=== PATIENT | female | born 1940 | race Caucasian/White ===

== ENCOUNTER 2017-09-14 13:22 | Emergency (ER) | payer OTHER ==
[~2017-09-14] VITALS: Ht 167.6 cm; Wt 67.6 kg
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
--- NOTE | 2017-09-14 15:03 | RADIOLOGY REPORT ---
EXAMINATION: SHOULDER 3 VIEWS, RIGHT CLINICAL INFORMATION: Right shoulder pain after fall. COMPARISON: None. TECHNIQUE: AP views of the right shoulder were obtained in internal and external rotation. In addition, a Y view was obtained. FINDINGS: There are no fractures or dislocations. The humeral head is seated within a well-formed glenoid. The AC joint is intact. There are age-appropriate degenerative changes to the right AC joint. IMPRESSION: No evidence for acute injury to the right shoulder.
[2017-09-14 15:04] VITALS: BP 131/62
--- NOTE | 2017-09-14 15:09 | RADIOLOGY REPORT ---
EXAMINATION: XR FEMUR, RIGHT XR HIP, RIGHT CLINICAL INFORMATION: Pain after fall COMPARISON: None TECHNIQUE: AP and lateral views of the right femur. AP and frog-leg lateral views of the right hip FINDINGS: Right hip: The visualized right pelvic bones are intact. The hip arthroplasty components are intact, as well. The femoral head prosthesis is well centered within the acetabular cup and there is no acute periprosthetic fracture. There is linear calcific density along the fascia overlying the greater trochanter. Right femur: Old, healed fracture of the distal femoral metadiaphysis. No acute osseous injury. The knee is suboptimally evaluated on these radiographs focused on the femur. There is tricompartmental osteoarthritis - severe at the medial tibiofemoral compartment. IMPRESSION: 1. Components of the right hip arthroplasty demonstrate satisfactory position and alignment. No acute periprosthetic fracture. 2. Old, healed fracture of the distal right femoral metadiaphysis. 3. Tricompartmental osteoarthritis of the right knee. 4. No acute findings.
[2017-09-14] MEDS ORDERED: CYCLOBENZAPRINE5 M2 PO (16:07)
== END 2017-09-14 16:32 ==
LOC: ERH 13:22
DX: S70.01XA Contusion of right hip, initial encounter (principal); S40.011A Contusion of right shoulder, initial encounter; W00.0XXA Fall on same level due to ice and snow, initial encounter; Y92.9 Unspecified place or not applicable; Y93.9 Activity, unspecified
CPT/HCPCS: 73030-RT; 73502-RT; 73552; 96374; J1885

== ENCOUNTER 2017-10-08 05:48 | Inpatient (IN) | payer OTHER ==
[~2017-10-08] VITALS: Ht 167.6 cm; Wt 69.4 kg
[~2017-10-08 05:48] MED LIST: CYCLOBENZAPRINE5 M2 PO
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
[2017-10-08 06:43] LABS: ABSOLUTE BASOPHIL COUNT 0 /CUMM (0.0-0.2); ABSOLUTE EOSINOPHIL COUNT 0.4 /CUMM (0.0-0.7); ABSOLUTE GRANULOCYTE CT 7.3 /CUMM (1.4-6.5); ABSOLUTE LYMPH COUNT 0.9 /CUMM (1.2-3.4); ABSOLUTE MONOCYTE COUNT 0.8 /CUMM (0.10-0.60); BASOPHIL % 0.2 % (0.0-2.0); EOSINOPHIL % 3.8 % (0-5); HEMATOCRIT 35.8 % (37-47); MEAN CORPUSCULAR HGB 28.3 PG (27.0-31.0); MEAN CORPUSCULAR VOLUME 85.9 FL (81.0-99.0); MEAN PLATELET VOLUME 8.6 FL (7.4-10.4); PLATELET COUNT 310 /CUMM (130-400); RBC DISTRIBUTION WIDTH 13.9 % (11.5-14.5); RED BLOOD CELL CT 4.17 /CUMM (4.20-5.40); WHITE BLOOD CELL COUNT 9.4 /CUMM (4.8-10.8)
--- NOTE | 2017-10-08 09:33 | CT SCAN REPORT ---
EXAMINATION: CT LUMBAR SPINE WITHOUT CONTRAST CLINICAL INFORMATION: Fall with low back pain. COMPARISON: None. TECHNIQUE: Helical non-contrast CT images were obtained through the lumbar spine and 1.25 and 2.5 mm axial reconstructions were reviewed along with sagittal and coronal MPRs. DLP: 651 mGy-cm. FINDINGS: Bone alignment is normal. No vertebral fracture or dislocation is seen. There is a fracture of the left proximal sacrum. This is best appreciated on coronal reconstructed image 46. SPINAL LEVELS: T12-L1: Normal. L1-L2: Normal. L2-L3: There is mild diffuse disc bulge. There is mild secondary spinal stenosis due to disc bulge, short pedicles and facet arthritis. L3-L4: There is broad-based diffuse disc bulge. There is severe spinal stenosis due to disc bulge, short pedicles, facet arthritis and ligamentum flavum thickening. L4-L5: There is broad-based diffuse disc bulge. There is severe secondary spinal stenosis due to disc bulge, short pedicles, facet arthritis and ligamentum flavum thickening. L5-S1: There is broad-based diffuse disc bulge. There is mild secondary spinal stenosis due to disc bulge, short pedicles and facet arthritis. The abdominal aorta is normal in caliber. Visualized paravertebral soft tissues are unremarkable. There may be evidence of diverticulosis. The bladder appears very distended. There are bilateral hip replacements. IMPRESSION: Fracture of the left proximal sacrum. No other fracture is seen. Multilevel broad-based diffuse disc bulge and secondary spinal stenosis due to disc bulge, short pedicles and facet arthritis most significant at L3-L4 and L4-L5.
--- NOTE | 2017-10-08 11:31 | History & Physical ---
Ruma Osorio 10/08/17 1126: General Information and HPI MD Statement: I have seen and personally examined EVELYNE KEANE and documented this H&P. The patient is a 76 year old F who presented with a patient stated chief complaint of [pelvic fracture]. Source of Information: patient Exam Limitations: no limitations History of Present Illness: Patient is 76 year old female with PMH of HTN, diabetes, hyperlipidemia came with chief complain of urinary incontinence and pelvic pain. Patient was here at [place] on 3rd and was sent home on cyclobenzaprine. Her pelvic pain however stayed constant at 10/10, worsened with movement. CT scan was done today which shows pelvic fracture. Patient states that urinary incontinence stated a few days ago. She reports of saddle anesthisia as a funny sensation while whiping herself off because she couldn't feel anything. Patient reports of urinary hesitenacy while lying down but incontinence as she stands up. She denies any blood in urine. Patient states that since the fall, she has obserevd that she feels constipated but also reports that she hasn't eaten much. Patient denies any headache, dizziness, chestpain, burning micturation etc. Allergies/Medications Allergies: Coded Allergies: No Known Allergies (09/14/17) Home Med list Atorvastatin Calcium 20 MG TABLET 1 TAB PO DAILY CHOLESTEROL (Reported) Cholecalciferol (Vitamin D3) (Vitamin D) (Unknown Strength) CAPSULE (Unknown Dose) PO DAILY SUPPLEMENT (Reported) Cyclobenzaprine HCl 5 MG TABLET 1 TAB PO Q8P PRN PAIN Fluticasone Propionate 50 MCG/ACTUATION SPRAY.SUSP 2 SPRAY NASB AD PRN NASAL (Reported) Folic Acid 0.4 MG TABLET 1 TAB PO DAILY SUPPLEMENT (Reported) Glipizide (Glipizide ER) 10 MG TAB.ER.24 2 TAB PO BID DM (Reported) Lorazepam 0.5 MG TABLET 1 TAB PO Q8H PRN ANXIETY (Reported) Losartan/Hydrochlorothiazide (Losartan-Hctz 100-12.5 MG Tab) 100 MG-12.5 MG TABLET 1 TAB PO DAILY BP (Reported) Multiple Vitamin (Multivitamins) 1 EACH TABLET 1 TAB PO DAILY SUPPLEMENT ( Reported) Sitagliptin Phos/Metformin HCl (Janumet 50-500 MG Tablet) 50 MG-500 MG TABLET 1 TAB PO BID DM (Reported) Tramadol HCl/Acetaminophen (Tramadol-Acetaminophn 37.5-325) 37.5 MG-325 MG TABLET 1-2 TAB PO Q8H PRN PAIN (Reported) Vit C/E/Zn/Coppr/Lutein/Zeaxan (Preservision Areds 2 Softgel) 250-200-40 CAPSULE 1 SGL PO BID SUPPLEMENT (Reported) Past History Travel History Traveled to [place] past 21 day No Medical History Neurological: NONE EENT: NONE Cardiovascular: hypertension Respiratory: DVT TO RT LEG Gastrointestinal: NONE Hepatic: NONE Renal: NONE Musculoskeletal: sciatica Psychiatric: NONE Endocrine: diabetes Surgical History Surgical History: B/L HIP REPLACEMENT RT FEMUR FRACTURE WHEN SHE WAS 15 Y/O SKIN GRAFTS TO RLE S/P GANGREEN FROM BODY CAST, two back operations, two herniated disc. been a while Past Family/Social History Psychosocial History Where do you live? Home Who Do You Live With? spouse Services at Home: Home Health Aide, twice a week Smoking Status: Never Smoked ETOH Use: ocassionally Functional Ability ADLs Independent: dressing, eating, toileting, bathing. Ambulation: walker Review of Systems Review of Systems Constitutional: Reports: see HPI. Exam & Diagnostic Data Last 24 Hrs of Vital Signs/I&O Vital Signs Date Time Temp Pulse Resp B/P B/P Pulse O2 O2 Flow FiO2 Mean Ox Delivery Rate 10/08 1041 97.7 88 18 139/64 94 Room Air 10/08 1034 Room Air Room Air 10/08 0909 97.0 80 20 136/72 96 Room Air 10/08 0803 98.0 93 15 136/61 96 Room Air Room Air 10/08 0550 98.2 97 18 133/65 8 Room Air Intake & Output 10/08 1600 10/08 0800 10/08 0000 Intake Total Output Total 150 Balance -150 Output, Urine 150 Patient 69.4 kg Weight Weight Reported by Patient Measurement Method Physical Exam General Appearance Alert, Oriented X3, Cooperative, No Acute Distress Skin No Rashes HEENT Atraumatic, PERRLA Neck Supple, No JVD Lymphatic Axillary nl, Cervical nl Cardiovascular Regular Rate, Normal S1, Normal S2 Lungs Clear to Auscultation, Normal Air Movement Abdomen Soft, No Tenderness, no tenderness in pelvic region , LOSS OF RECTAL TONE Neurological Normal Gait, Normal Speech, Strength at 5/5 X4 Ext, Normal Tone, Sensation Intact, Cranial Nerves 3-12 NL, Reflexes 2+ Extremities right lower extreety is red and swollen Vascular Normal Pulses Last 24 Hrs of Labs/Chung: Laboratory Tests 10/08/17 0630: Anion Gap 16, Estimated GFR > 60, BUN/Creatinine Ratio 21.7, Glucose 152 H, Calcium 9.4, Total Bilirubin 0.5, Direct Bilirubin 0.2, AST 24, ALT 26, Alkaline Phosphatase 112, Troponin I < 0.01, Total Protein 6.7, Albumin 3.9, Amylase 92, Lipase 196, CBC w Diff NO MAN DIFF REQ, RBC 4.17 L, MCV 85.9, MCH 28.3, MCHC 33.0, RDW 13.9, MPV 8.6, Gran % 78.0 H, Lymphocytes % 9.2 L, Monocytes % 8.8, Eosinophils % 3.8, Basophils % 0.2, Absolute Granulocytes 7.3 H, Absolute Lymphocytes 0.9 L, Absolute Monocytes 0.8 H, Absolute Eosinophils 0.4, Absolute Basophils 0 10/08/17 0615: Urinalysis LIGHT H, Urine Color STRAW, Urine Clarity CLEAR, Urine pH 7.0, Ur Specific [place] 1.010, Urine Protein NEG, Urine Ketones NEG, Urine Nitrite POS H, Urine Bilirubin NEG, Urine Urobilinogen 0.2, Ur Leukocyte Esterase NEG, Ur Microscopic SEDIMENT EXAMINED, Urine RBC 1-3, Urine WBC 1-3 H, Ur Epithelial Cells FEW, Urine Bacteria MANY H, Urine Hemoglobin NEG, Urine Glucose NEG Assessment/Plan Assessment: Patient is 76 year old female with PMH of HTN, diabetes, hyperlipidemia came with chief complain of urinary incontinence and pelvic pain. Patient was here at [place] on and was sent home on cyclobenzaprine. Her pelvic pain however stayed constant at 10/10, worsened with movement. CT scan was done today which shows pelvic fracture. Patient states that urinary incontinence stated a few days ago. she has stopped taking her lasix since then. She states that right now, she feels urinary hesitaency but was incontinent earlier today. Denies any blood in urine. CT can 10/08 Fracture of the left proximal sacrum. No other fracture is seen. Multilevel broad-based diffuse disc bulge and secondary spinal stenosis due to disc bulge, short pedicles and facet arthritis most significant at L3-L4 and L4-L5. 1.Pelvic fracture with urinary incontinence and loss of rectal tone 2.Diabetes 3. Hypertension Assessment and Plan There is a possibility of cauda equina syndrome, consult placed with neurosurgery Dr. Anderson. Patient was given one dose of on 10 mg of dexamethasone. Spoke with Erin (surgical PA) regarding her possible cauda equina syndrome (patient reports saddle anesthesia, urinary incontinence and loss of rectal tone on examination). The neurosurgery recommends to hold off on steroids for now as they think that looking at the imagines, pelvic fracture is unlikely. Ortho consult will be placed. Will continue patient on her home medication including HCTZ, losartan, atorvastatin, lasix, Novolog sliding scale for diabetes and finger sticks Pain management with Tylenol and toradol as needed. doppler usg for dvt right lower ext negative for dvt dvt ppx lovenox patient is funn code As Ranked By This Provider Problem List: 1. Sacral fracture, closed Core Measures/Misc (05/29) Acute Coronary Syndrome ACS Diagnosis: No Congestive Heart Failure Congestive Heart Failure Diagnosis No Cerebrovascular Accident CVA/TIA Diagnosis: No VTE (View Protocol) VTE Risk Factors Age>40 No Mechanical VTE Prophylaxis d/t N/A MechProphylax Ordered No VTE Pharm Prophylaxis d/t NA PharmProphylax ordered Sepsis (View protocol) Sepsis Present: No Aidee Nichols MD 10/08/17 1506: Attending MD Review Statement Attending Statement Attending MD Statement: examined this patient, discuss w/resident/PA/REGULATORY ASSOCIATE, agreed w/resident/PA/REGULATORY ASSOCIATE, reviewed EMR data (avail), discussed with nursing, reviewed images, amended to note Attending Assessment/Plan: 76 y/o F with pmh sig for HTN, diabetes, hyperlipidemia, presented to the emergency room with continuous pain in her right lower extremity, and some urinary issues. Patient was initially seen on September 14 after she slipped on the piece of ice because she lost her balance. X-ray of the femur as well as shoulder at that time were negative and patient was sent home. Patient continued to walk but had excruciating pain in her right lower extremity and claims that her right lower extremity was also more swollen. She now also having difficulty with urination. She had urge to go but then they urine would not come out when she was sitting on the commode but as soon as she stood up she had incontinence. She denies any burning or pain. She denies any problem with her bowel movements. In the emergency room CT shows fracture of sacrum. Vital Signs Date Time Temp Pulse Resp B/P B/P Pulse O2 O2 Flow FiO2 Mean Ox Delivery Rate 10/08 1325 98.2 89 20 140/66 97 Room Air 10/08 1209 98.0 80 18 117/76 98 Room Air 10/08 1041 97.7 88 18 139/64 94 Room Air 10/08 1034 Room Air Room Air 10/08 0909 97.0 80 20 136/72 96 Room Air 10/08 0803 98.0 93 15 136/61 96 Room Air Room Air 10/08 0550 98.2 97 18 133/65 8 Room Air on exam; aox3, nad. cv; s1,s2 rrr resp; clear abd; soft, nt, ns+ ext; 1+ edema rle. Neuro: Non focal but pateint has painful ROM rle. Laboratory Tests 10/08 10/08 0630 0615 Chemistry Sodium (137 - 145 mmol/L) 143 Potassium (3.5 - 5.1 mmol/L) 3.6 Chloride (98 - 107 mmol/L) 100 Carbon Dioxide (22 - 30 mmol/L) 27 Anion Gap (5 - 16) 16 BUN (7 - 17 mg/dL) 13 Creatinine (0.5 - 1.0 mg/dL) 0.6 Estimated GFR (>60 ml/min) > 60 BUN/Creatinine Ratio (7 - 25 %) 21.7 Glucose (65 - 99 mg/dL) 152 H Calcium (8.4 - 10.2 mg/dL) 9.4 Total Bilirubin (0.2 - 1.3 mg/dL) 0.5 Direct Bilirubin (< 0.4 mg/dL) 0.2 AST (14 - 36 U/L) 24 ALT (9 - 52 U/L) 26 Alkaline Phosphatase (<127 U/L) 112 Troponin I (< 0.11 ng/ml) < 0.01 Total Protein (6.3 - 8.2 g/dL) 6.7 Albumin (3.5 - 5.0 g/dL) 3.9 Amylase (30 - 110 U/L) 92 Lipase (23 - 300 U/L) 196 Hematology CBC w Diff NO MAN DIFF REQ WBC (4.8 - 10.8 /CUMM) 9.4 RBC (4.20 - 5.40 /CUMM) 4.17 L Hgb (12.0 - 16.0 G/DL) 11.8 L Hct (37 - 47 %) 35.8 L MCV (81.0 - 99.0 FL) 85.9 MCH (27.0 - 31.0 PG) 28.3 MCHC (33.0 - 37.0 G/DL) 33.0 RDW (11.5 - 14.5 %) 13.9 Plt Count (130 - 400 /CUMM) 310 MPV (7.4 - 10.4 FL) 8.6 Gran % (42.2 - 75.2 %) 78.0 H Lymphocytes % (20.5 - 51.1 %) 9.2 L Monocytes % (1.7 - 9.3 %) 8.8 Eosinophils % (0 - 5 %) 3.8 Basophils % (0.0 - 2.0 %) 0.2 Absolute Granulocytes (1.4 - 6.5 /CUMM) 7.3 H Absolute Lymphocytes (1.2 - 3.4 /CUMM) 0.9 L Absolute Monocytes (0.10 - 0.60 /CUMM) 0.8 H Absolute Eosinophils (0.0 - 0.7 /CUMM) 0.4 Absolute Basophils (0.0 - 0.2 /CUMM) 0 Urines Urinalysis LIGHT H Urine Color (YEL,AMB,STR) STRAW Urine Clarity (CLEAR) CLEAR Urine pH (5.0 - 8.0) 7.0 Ur Specific [place] (1.001 - 1.035) 1.010 Urine Protein (NEG,<30 MG/DL) NEG Urine Ketones (NEG) NEG Urine Nitrite (NEG) POS H Urine Bilirubin (NEG) NEG Urine Urobilinogen (0.1 - 1.0 EU/dl) 0.2 Ur Leukocyte Esterase (NEG) NEG Ur Microscopic SEDIMENT EXAMINED Urine RBC (0 - 5 /HPF) 1-3 Urine WBC (0 - 2 /HPF) 1-3 H Ur Epithelial Cells (NONE,FEW) FEW Urine Bacteria (NEG/NONE) MANY H Urine Hemoglobin (NEG) NEG Urine Glucose (N MG/DL) NEG CT lumbar spine: IMPRESSION: Fracture of the left proximal sacrum. No other fracture is seen. Multilevel broad-based diffuse disc bulge and secondary spinal stenosis due to disc bulge, short pedicles and facet arthritis most significant at L3-L4 and L4-L5. EKG shows sinus rhythm. A/P; 76 y/o F with pmh sig for HTN, diabetes, hyperlipidemia, admitted with a fall which happened 3 weeks ago and now with continued pain patient presented to the emergency room. Imaging is consistent with sacral fracture. Patient also has some urinary incontinence. Concern for Cauda Equina. Please check the rectal exam to check the rectal tone. She does have diffuse disc bulge and spinal stenosis on lumbar CT. We should consult neurosurgery as well as orthopedic. Patient also needs LS-spine MRI. Patient's pain will be controlled with the Tylenol and ibuprofen and if needed low-dose narcotics will be used only a when necessary basis. Patient will be seen by physical therapy. Diabetes can be controlled with sliding scale insulin. Her right lower extremity Doppler ultrasound is negative for DVT. Patient be on Lovenox for DVT prophylaxis.
[2017-10-08] MEDS ORDERED: TRAMADOL-ACETA1 EACH PO (12:50)
[2017-10-08] MEDS ORDERED: LOSARTAN-HCTZ1 EACH PO (12:53)
[2017-10-08] MEDS ORDERED: FLUTICASONE PRO16 GM NASB (12:53)
[2017-10-08] MEDS ORDERED: JANUMET 50-5001 EACH PO (12:53)
[2017-10-08] MEDS ORDERED: GLIPIZIDE ER10 M1 PO (12:53)
[2017-10-08] MEDS ORDERED: LORAZEPAM0.5 M1 PO (12:54)
[2017-10-08] MEDS ORDERED: ATORVASTATIN CA20 M1 PO (12:54)
[2017-10-08] MEDS ORDERED: MULTIVITAMINS1 EAC9 PO (12:56)
[2017-10-08] MEDS ORDERED: FOLIC ACID0.4 M1 PO (12:57)
[2017-10-08] MEDS ORDERED: PRESERVISION A1 EAC1 PO (12:57)
[2017-10-08] MEDS ORDERED: VITAMIN D2000 UNIT PO (13:00)
--- NOTE | 2017-10-08 13:09 | ULTRASOUND REPORT ---
EXAMINATION: US TRIPLEX LOWER EXTREMITY, RIGHT CLINICAL INFORMATION: Right leg tenderness COMPARISON: None TECHNIQUE: Color-flow triplex imaging with spectral analysis and compression Doppler were performed on the lower extremity. FINDINGS: Respiratory variation, normal compression and augmented flow are noted throughout the lower extremity. The visualized common femoral vein, superficial femoral vein, profunda femoral vein, popliteal vein and midcalf peroneal and posterior tibial venous segments show no evidence of deep venous thrombosis. There is no Spaulding's cyst. IMPRESSION: Normal triplex scan without evidence of deep venous thrombosis involving the lower extremity.
[2017-10-08 13:25] VITALS: BP 140/66
--- NOTE | 2017-10-08 16:48 | Cons- Neurosurgical ---
General Information and HPI Consulting Request Requested By: Aidee Nichols MD Reason for Consult: concern for cauda equina syndrome Source of Information: patient, old records History of Present Illness: Pt is a 76 yo F with a hx of HTN, diabetes, hyperlipidemia, and back surgery x 2 who slipped and fell on ice on 09/14/17, was seen in the ED at that time and determined to have no fractures, so she was sent home. She continued to c/o pain at home and now reports urinary incontinence x 3 days, prompting presentation to the ED today. Allergies/Medications Allergies: Coded Allergies: No Known Allergies (09/14/17) Home Med List: Atorvastatin Calcium 20 MG TABLET 1 TAB PO DAILY CHOLESTEROL (Reported) Cholecalciferol (Vitamin D3) (Vitamin D) (Unknown Strength) CAPSULE (Unknown Dose) PO DAILY SUPPLEMENT (Reported) Cyclobenzaprine HCl 5 MG TABLET 1 TAB PO Q8P PRN PAIN Fluticasone Propionate 50 MCG/ACTUATION SPRAY.SUSP 2 SPRAY NASB AD PRN NASAL (Reported) Folic Acid 0.4 MG TABLET 1 TAB PO DAILY SUPPLEMENT (Reported) Glipizide (Glipizide ER) 10 MG TAB.ER.24 2 TAB PO BID DM (Reported) Lorazepam 0.5 MG TABLET 1 TAB PO Q8H PRN ANXIETY (Reported) Losartan/Hydrochlorothiazide (Losartan-Hctz 100-12.5 MG Tab) 100 MG-12.5 MG TABLET 1 TAB PO DAILY BP (Reported) Multiple Vitamin (Multivitamins) 1 EACH TABLET 1 TAB PO DAILY SUPPLEMENT ( Reported) Sitagliptin Phos/Metformin HCl (Janumet 50-500 MG Tablet) 50 MG-500 MG TABLET 1 TAB PO BID DM (Reported) Tramadol HCl/Acetaminophen (Tramadol-Acetaminophn 37.5-325) 37.5 MG-325 MG TABLET 1-2 TAB PO Q8H PRN PAIN (Reported) Vit C/E/Zn/Coppr/Lutein/Zeaxan (Preservision Areds 2 Softgel) 250-200-40 CAPSULE 1 SGL PO BID SUPPLEMENT (Reported) Past History Medical History Neurological: NONE EENT: NONE Cardiovascular: hypertension Respiratory: DVT TO RT LEG Gastrointestinal: NONE Hepatic: NONE Renal: NONE Musculoskeletal: sciatica Psychiatric: NONE Endocrine: diabetes Surgical History Pertinent Surgical History: B/L HIP REPLACEMENT RT FEMUR FRACTURE WHEN SHE WAS 15 Y/O SKIN GRAFTS TO RLE S/P GANGREEN FROM BODY CAST two back operations, two herniated disc. been a while, back surgery x 2 Psychosocial History Where Do You Live? Home Who Do You Live With? spouse Services at Home: Home Health Aide, twice a week Smoking Status: Never Smoked ETOH Use: ocassionally Functional Ability ADLs Independent: dressing, eating, toileting, bathing. Ambulation: walker Exam & Diagnostic Data Vital Signs and I&O Vital Signs Date Time Temp Pulse Resp B/P B/P Pulse O2 O2 Flow FiO2 Mean Ox Delivery Rate 10/08 1325 98.2 89 20 140/66 97 Room Air 10/08 1209 98.0 80 18 117/76 98 Room Air 10/08 1041 97.7 88 18 139/64 94 Room Air 10/08 1034 Room Air Room Air 10/08 0909 97.0 80 20 136/72 96 Room Air 10/08 0803 98.0 93 15 136/61 96 Room Air Room Air 10/08 0550 98.2 97 18 133/65 8 Room Air Intake & Output 10/08 1600 10/08 0800 10/08 0000 10/07 1600 10/07 0800 10/07 0000 Intake Total Output Total 150 Balance -150 Output, Urine 150 Patient 153 lb Weight Weight Reported by Patient Measurement Method Last 24 Hours of Labs: Laboratory Tests 10/08 10/08 0630 0615 Chemistry Sodium (137 - 145 mmol/L) 143 Potassium (3.5 - 5.1 mmol/L) 3.6 Chloride (98 - 107 mmol/L) 100 Carbon Dioxide (22 - 30 mmol/L) 27 Anion Gap (5 - 16) 16 BUN (7 - 17 mg/dL) 13 Creatinine (0.5 - 1.0 mg/dL) 0.6 Estimated GFR (>60 ml/min) > 60 BUN/Creatinine Ratio (7 - 25 %) 21.7 Glucose (65 - 99 mg/dL) 152 H Calcium (8.4 - 10.2 mg/dL) 9.4 Total Bilirubin (0.2 - 1.3 mg/dL) 0.5 Direct Bilirubin (< 0.4 mg/dL) 0.2 AST (14 - 36 U/L) 24 ALT (9 - 52 U/L) 26 Alkaline Phosphatase (<127 U/L) 112 Troponin I (< 0.11 ng/ml) < 0.01 Total Protein (6.3 - 8.2 g/dL) 6.7 Albumin (3.5 - 5.0 g/dL) 3.9 Amylase (30 - 110 U/L) 92 Lipase (23 - 300 U/L) 196 Hematology CBC w Diff NO MAN DIFF REQ WBC (4.8 - 10.8 /CUMM) 9.4 RBC (4.20 - 5.40 /CUMM) 4.17 L Hgb (12.0 - 16.0 G/DL) 11.8 L Hct (37 - 47 %) 35.8 L MCV (81.0 - 99.0 FL) 85.9 MCH (27.0 - 31.0 PG) 28.3 MCHC (33.0 - 37.0 G/DL) 33.0 RDW (11.5 - 14.5 %) 13.9 Plt Count (130 - 400 /CUMM) 310 MPV (7.4 - 10.4 FL) 8.6 Gran % (42.2 - 75.2 %) 78.0 H Lymphocytes % (20.5 - 51.1 %) 9.2 L Monocytes % (1.7 - 9.3 %) 8.8 Eosinophils % (0 - 5 %) 3.8 Basophils % (0.0 - 2.0 %) 0.2 Absolute Granulocytes (1.4 - 6.5 /CUMM) 7.3 H Absolute Lymphocytes (1.2 - 3.4 /CUMM) 0.9 L Absolute Monocytes (0.10 - 0.60 /CUMM) 0.8 H Absolute Eosinophils (0.0 - 0.7 /CUMM) 0.4 Absolute Basophils (0.0 - 0.2 /CUMM) 0 Urines Urinalysis LIGHT H Urine Color (YEL,AMB,STR) STRAW Urine Clarity (CLEAR) CLEAR Urine pH (5.0 - 8.0) 7.0 Ur Specific [place] (1.001 - 1.035) 1.010 Urine Protein (NEG,<30 MG/DL) NEG Urine Ketones (NEG) NEG Urine Nitrite (NEG) POS H Urine Bilirubin (NEG) NEG Urine Urobilinogen (0.1 - 1.0 EU/dl) 0.2 Ur Leukocyte Esterase (NEG) NEG Ur Microscopic SEDIMENT EXAMINED Urine RBC (0 - 5 /HPF) 1-3 Urine WBC (0 - 2 /HPF) 1-3 H Ur Epithelial Cells (NONE,FEW) FEW Urine Bacteria (NEG/NONE) MANY H Urine Hemoglobin (NEG) NEG Urine Glucose (N MG/DL) NEG Imaging Results: CT lumbar spine revealed: Fracture of the left proximal sacrum. No other fracture is seen. Multilevel broad-based diffuse disc bulge and secondary spinal stenosis due to disc bulge, short pedicles and facet arthritis most significant at L3-L4 and L4-L5. Assessment/Plan Assessment/Plan Pt is a 76 yo F with a hx of HTN, diabetes, hyperlipidemia, and back surgery x 2 with radiologic findings of sacral fracture with associated spinal stenosis and symptoms of urinary incontinence and concern for cauda equina syndrome. -Agree with findings consistent with cauda equina syndrome (buttock and groin pain with radicular symptoms, saddle anesthesia, loss of rectal sphincter tone, and urinary incontinence). I spoke with the neurosurgeon, Dr. Anderson, and he does not appreciate the sacral fracture finding on CT. There is extensive arthritis and the clinical picture supports this as a possible diagnosis, however, further imaging with MRI is needed to better define the source of pt's symptoms. Dr. Anderson understands MRI is not available until Tuesday, so the test can be done then. There is no acute indication for emergent surgical intervention at this time. -Bedrest. -Pain control as needed. -One dose of decadron has been given so far, but steroids should be held as long as pt remains comfortable while in bed. The risk of steroids to potentiate hyperglycemia in the setting of possible surgery outweighs the benefit of giving them. -Neuro checks Consult Acknowledgment - Thank you for your consult request.
[2017-10-08 21:27] VITALS: BP 124/66
[2017-10-09 06:12] VITALS: BP 124/62
--- NOTE | 2017-10-09 07:26 | PN- Housestaff ---
AbdulkadirStanford 10/09/17 0719: Subjective Follow-up For: Cauda equina syndrome. Non displaced left sacral fracture Subjective: No overnight events. Patient remained afebrile overnight. Seen and examined this morning. Patient reported having pain 45/10. She denied any chest pain, short of breath, nausea, vomiting, chills, fever, abdominal pain dysuria. Patient also reported having numbness intracranial area but it's getting better according to the patient. Patient is on bedrest. Review of Systems Constitutional: Reports: no symptoms. EENTM: Reports: no symptoms. Cardiovascular: Reports: no symptoms. Respiratory: Reports: no symptoms. Gastrointestinal: Reports: no symptoms. Genitourinary: Reports: no symptoms. Musculoskeletal: Reports: see HPI. Neurological/Psychological: Reports: numbness. Objective Last 24 Hrs of Vital Signs/I&O Vital Signs Date Time Temp Pulse Resp B/P B/P Pulse O2 O2 Flow FiO2 Mean Ox Delivery Rate 10/09 0612 97.4 84 20 124/62 95 10/08 2127 98.6 94 18 124/66 94 Room Air 10/08 1712 95 108/60 10/08 1325 98.2 89 20 140/66 97 Room Air 10/08 1209 98.0 80 18 117/76 98 Room Air 10/08 1041 97.7 88 18 139/64 94 Room Air 10/08 1034 Room Air Room Air 10/08 0909 97.0 80 20 136/72 96 Room Air Intake & Output 10/09 1600 10/09 0800 10/09 0000 Intake Total 350 650 Output Total 1000 1000 Balance -650 -350 Intake, Oral 350 650 Output, Urine 1000 1000 Physical Exam General Appearance: Alert, Oriented X3, Cooperative, No Acute Distress Skin Temp/Moisture Exam: Warm/Dry Sepsis Skin Exam (color): Normal for Ethnicity HEENT: Atraumatic, PERRLA, EOMI Neck: Supple Cardiovascular: Normal S1, Normal S2 Lungs: Clear to Auscultation Abdomen: Soft, No Tenderness Neurological: Normal Speech, Strength at 5/5 X4 Ext, Normal Tone Extremities: Right leg is swollen compare to left. Assessment/Plan Assessment: 76 yo F with PMH of HTN, diabetes, hyperlipidemia, and back surgery x 2 who slipped and fell on ice on 09/14/17, was seen in the ED at that time and determined to have no fractures, so she was sent home. She continued to c/o pain at home and now reports urinary incontinence x 3 days, prompting presentation to the ED today. We will admit the patient on general medicine floor for pain management and cauda equina syndrome management. Cauda equina syndrome: -Findings consistent with cauda equina syndrome (buttock and groin pain with radicular symptoms, saddle anesthesia, loss of rectal sphincter tone, and urinary incontinence). -Pain management -Bedrest -Neuro checks every 4 hourly. -MRI for further evaluation -Orthopedic recommended conservative management for now. -Neurosurgery recommendations History of hypertension and hyperlipidemia: -We will continue her antihypertensive and antihyperlipidemic medication. History of diabetes: -Accu-Cheks -Insulin NovoLog according to sliding scale. DVT prophylaxis: Mechanical and Lovenox CODE STATUS: Full code Problem List: 1. Sacral fracture, closed 2. Weakness 3. Back pain Pain Ratin Pain Location: Left buttock Pain Goal: Pain 4 or less Pain Plan: tylenol for mild pain Tomorrow's Labs & Rationales: cbc/bep Carla Nichols MDesha 10/09/17 1308: Attending MD Review Statement Attending Statement Attending MD Statement: examined this patient, discuss w/resident/PA/SPONGE DIVER, agreed w/resident/PA/SPONGE DIVER, reviewed EMR data (avail), discussed with nursing, discussed with case mgmt, reviewed images, amended to note Attending Assessment/Plan: Patient seen and examined, feels ok. Pain well controlled. Seen by neurosurg for concern for cauda equina, orthopedic. Vital Signs Date Time Temp Pulse Resp B/P B/P Pulse O2 O2 Flow FiO2 Mean Ox Delivery Rate 10/09 1035 72 120/60 10/09 0612 97.4 84 20 124/62 95 10/08 2127 98.6 94 18 124/66 94 Room Air 10/08 1712 95 108/60 10/08 1325 98.2 89 20 140/66 97 Room Air on exam; aox3, nad. cv; s1,s2, rrr resp; clear abd; soft, nt, bs+ ext; no edema. neuro: non focal. Laboratory Tests 10/09 0705 Chemistry Sodium (137 - 145 mmol/L) 143 Potassium (3.5 - 5.1 mmol/L) 4.3 Chloride (98 - 107 mmol/L) 101 Carbon Dioxide (22 - 30 mmol/L) 27 Anion Gap (5 - 16) 15 BUN (7 - 17 mg/dL) 16 Creatinine (0.5 - 1.0 mg/dL) 0.6 Estimated GFR (>60 ml/min) > 60 BUN/Creatinine Ratio (7 - 25 %) 26.7 H Hematology CBC w Diff NO MAN DIFF REQ WBC (4.8 - 10.8 /CUMM) 9.6 RBC (4.20 - 5.40 /CUMM) 4.24 Hgb (12.0 - 16.0 G/DL) 12.1 Hct (37 - 47 %) 36.5 L MCV (81.0 - 99.0 FL) 86.3 MCH (27.0 - 31.0 PG) 28.6 MCHC (33.0 - 37.0 G/DL) 33.2 RDW (11.5 - 14.5 %) 13.9 Plt Count (130 - 400 /CUMM) 356 MPV (7.4 - 10.4 FL) 9.2 Gran % (42.2 - 75.2 %) 89.7 H Lymphocytes % (20.5 - 51.1 %) 6.4 L Monocytes % (1.7 - 9.3 %) 3.8 Eosinophils % (0 - 5 %) 0 Basophils % (0.0 - 2.0 %) 0.1 Absolute Granulocytes (1.4 - 6.5 /CUMM) 8.6 H Absolute Lymphocytes (1.2 - 3.4 /CUMM) 0.6 L Absolute Monocytes (0.10 - 0.60 /CUMM) 0.4 Absolute Eosinophils (0.0 - 0.7 /CUMM) 0 Absolute Basophils (0.0 - 0.2 /CUMM) 0 A/P; 76 y/o F with pmh sig for HTN, diabetes, hyperlipidemia, admitted with a fall which happened 3 weeks ago and now with continued pain patient presented to the emergency room. Imaging is consistent with sacral fracture. Patient also has some urinary incontinence. Concern for Cauda Equina. Seen orthopedic, neurosurg. Conservative mx recommended. MRI LS spine recommended which unfortunatley not availabel today. Neurosurg aware. Pt received one dose of decadron yesterday, Neurosurg recommended not to give any further. Continue current pain mx. Continue all current meds. DVt px; Lovenox. PT eval. Addendum: Neurosurg follow-up later in the afternoon recommended transfer to [facility] for an urgent MRI. Patient will be admitted to Dr. Anderson's c. Arrngements will be made.
[2017-10-09 08:33] LABS: ABSOLUTE BASOPHIL COUNT 0 /CUMM (0.0-0.2); ABSOLUTE EOSINOPHIL COUNT 0 /CUMM (0.0-0.7); ABSOLUTE GRANULOCYTE CT 8.6 /CUMM (1.4-6.5); ABSOLUTE LYMPH COUNT 0.6 /CUMM (1.2-3.4); ABSOLUTE MONOCYTE COUNT 0.4 /CUMM (0.10-0.60); BASOPHIL % 0.1 % (0.0-2.0); EOSINOPHIL % 0 % (0-5); HEMATOCRIT 36.5 % (37-47); MEAN CORPUSCULAR HGB 28.6 PG (27.0-31.0); MEAN CORPUSCULAR HGB CONC 33.2 G/DL (33.0-37.0); MEAN CORPUSCULAR VOLUME 86.3 FL (81.0-99.0); MEAN PLATELET VOLUME 9.2 FL (7.4-10.4); PLATELET COUNT 356 /CUMM (130-400); RBC DISTRIBUTION WIDTH 13.9 % (11.5-14.5); RED BLOOD CELL CT 4.24 /CUMM (4.20-5.40); WHITE BLOOD CELL COUNT 9.6 /CUMM (4.8-10.8)
--- NOTE | 2017-10-09 08:36 | Cons- Orthopedic ---
General Information and HPI Consulting Request Date of Consult: 10/09/17 Requested By: Aidee Nichols MD Reason for Consult: pain left sacrum and lower lumbar spine Source of Information: patient History of Present Illness: patient has had many orthopedic procedures in the past including bilateral hip replacements , lumbar discectomies x2. she had a mechanical fall which resulted in a left sided sacral fracture and exacerbation of her spinal stenosis at L4-5 and L 5 S1.was admitted with pain and difficulty walking.neurosurgery has seen the patient and appropriately has ordered lumbar MRI. Allergies/Medications Allergies: Coded Allergies: No Known Allergies (09/14/17) Home Med List: Atorvastatin Calcium 20 MG TABLET 1 TAB PO DAILY CHOLESTEROL (Reported) Cholecalciferol (Vitamin D3) (Vitamin D) (Unknown Strength) CAPSULE (Unknown Dose) PO DAILY SUPPLEMENT (Reported) Cyclobenzaprine HCl 5 MG TABLET 1 TAB PO Q8P PRN PAIN Fluticasone Propionate 50 MCG/ACTUATION SPRAY.SUSP 2 SPRAY NASB AD PRN NASAL (Reported) Folic Acid 0.4 MG TABLET 1 TAB PO DAILY SUPPLEMENT (Reported) Glipizide (Glipizide ER) 10 MG TAB.ER.24 2 TAB PO BID DM (Reported) Lorazepam 0.5 MG TABLET 1 TAB PO Q8H PRN ANXIETY (Reported) Losartan/Hydrochlorothiazide (Losartan-Hctz 100-12.5 MG Tab) 100 MG-12.5 MG TABLET 1 TAB PO DAILY BP (Reported) Multiple Vitamin (Multivitamins) 1 EACH TABLET 1 TAB PO DAILY SUPPLEMENT ( Reported) Sitagliptin Phos/Metformin HCl (Janumet 50-500 MG Tablet) 50 MG-500 MG TABLET 1 TAB PO BID DM (Reported) Tramadol HCl/Acetaminophen (Tramadol-Acetaminophn 37.5-325) 37.5 MG-325 MG TABLET 1-2 TAB PO Q8H PRN PAIN (Reported) Vit C/E/Zn/Coppr/Lutein/Zeaxan (Preservision Areds 2 Softgel) 250-200-40 CAPSULE 1 SGL PO BID SUPPLEMENT (Reported) Past History Medical History Neurological: NONE EENT: NONE Cardiovascular: hypertension Respiratory: DVT TO RT LEG Gastrointestinal: NONE Hepatic: NONE Renal: NONE Musculoskeletal: sciatica Psychiatric: NONE Endocrine: diabetes Surgical History Pertinent Surgical History: B/L HIP REPLACEMENT RT FEMUR FRACTURE WHEN SHE WAS 15 Y/O SKIN GRAFTS TO RLE S/P GANGREEN FROM BODY CAST two back operations, two herniated disc. been a while back surgery x 2 Psychosocial History Where Do You Live? Home Who Do You Live With? spouse Services at Home: Home Health Aide, twice a week Smoking Status: Never Smoked ETOH Use: ocassionally Functional Ability ADLs Independent: dressing, eating, toileting, bathing. Ambulation: walker Exam & Diagnostic Data Vital Signs and I&O Vital Signs Date Time Temp Pulse Resp B/P B/P Pulse O2 O2 Flow FiO2 Mean Ox Delivery Rate 10/09 0612 97.4 84 20 124/62 95 10/08 2127 98.6 94 18 124/66 94 Room Air 10/08 1712 95 108/60 10/08 1325 98.2 89 20 140/66 97 Room Air 10/08 1209 98.0 80 18 117/76 98 Room Air 10/08 1041 97.7 88 18 139/64 94 Room Air 10/08 1034 Room Air Room Air 10/08 0909 97.0 80 20 136/72 96 Room Air Intake & Output 10/09 1600 10/09 0800 10/09 0000 10/08 1600 10/08 0800 10/08 0000 Intake Total 350 650 250 Output Total 1000 1000 200 150 Balance -650 -350 50 -150 Intake, Oral 350 650 250 Number 0 Bowel Movements Output, Urine 1000 1000 200 150 Patient 153 lb 153 lb Weight Weight Reported by Patient Reported by Patient Measurement Method Physical Exam: she is an alert female complains of some sacral and lumbar pain. she has no change in bowel or bladder habits.she has pain to palpation over sacrum and lumbar spine. neuro grossly intact. ct scan left sided fracture sacrum no displacement. Assessment/Plan Assessment/Plan patient is a 76 y/o with significant lumbar spinal stenosis and new nondisplaced left sacral fracture.the plan is MRI for neurosurgery to review. she can be OOB 50% wb left side full on right. no orthopedic intervention needed. Consult Acknowledgment - Thank you for your consult request.
[2017-10-09 09:24] LABS: GRANULOCYTE % 89.7 % (42.2-75.2)
--- NOTE | 2017-10-09 14:18 | PN- Neurosurgical ---
Subjective Subjective: Patient continues to complain of low back pain with radiation to the right lower extremity. She also still has subtle paresthesias but states it is slightly better today. She has been incontinent of urine. She complains of hypersensitivity in the lower leg especially around the ankle. Review of Systems: See above Objective Vital Signs and I&Os Vital Signs Date Time Temp Pulse Resp B/P B/P Pulse O2 O2 Flow FiO2 Mean Ox Delivery Rate 10/09 1035 72 120/60 10/09 0612 97.4 84 20 124/62 95 10/08 2127 98.6 94 18 124/66 94 Room Air 10/08 1712 95 108/60 Intake & Output 10/09 1600 10/09 0800 10/09 0000 10/08 1600 10/08 0800 10/08 0000 Intake Total 350 650 250 Output Total 1000 1000 200 150 Balance -650 -350 50 -150 Intake, Oral 350 650 250 Number 0 Bowel Movements Output, Urine 1000 1000 200 150 Patient 153 lb 153 lb Weight Weight Reported by Patient Reported by Patient Measurement Method Physical Exam: A&O 3, NAD She has good strength in her lower extremities but limited secondary to discomfort in the right lower leg and from the knee down He has some hypersensitivity of the skin around the ankle. She has good proximal strength Straight leg raise is negative to 60 bilaterally. Assessment/Plan Assessment/Plan Probable cauda equina syndrome Since MRI is not available at this facility today, we recommended patient be transferred to [facility] to undergo a stat MRI with and without contrast of lumbar spine Patient will be admitted to Dr. Anderson's service. Plans are being made for this transfer. Condition is in full agreement Problem List: 1. Weakness 2. Back pain Attending MD Review Statement Attending Statement Attending MD Statement: discuss w/resident/PA/PERFUME AND TOILET WATER MAKER, agreed w/resident/PA/PERFUME AND TOILET WATER MAKER
--- NOTE | 2017-10-09 14:23 | Patient Discharge Instructions ---
Discharge Instructions General Discharge Information You were seen/treated for: CAUDA EQUINA SYNDROME Special Instructions: YOU WILL BE SEEN BY DR. HEREDIA NEUROSURGEON, MRI WILL BE DONE FOR EVALUATION CAUDA EQUINA SYNDROME. Diet Continue normal diet: Yes Recommended Diet: Diabetic Activity Full Activity/No Limits: Yes ( TOLERATED) Acute Coronary Syndrome Inclusion Criteria At DC or during hospital stay patient has or had the following: ACS DIAGNOSIS No Discharge Core Measures Meds if any: Prescribed or Continued at Discharge Meds if any: NOT Prescribed or Continued at Discharge Congestive Heart Failure Inclusion Criteria At DC or during hospital stay patient has or had the following: CHF DIAGNOSIS No Discharge Core Measures Meds if any: Prescribed or Continued at Discharge Meds if any: NOT Prescribed or Continued at Discharge Cerebrovascular accident Inclusion Criteria At DC or during hospital stay patient has or had the following: CVA/TIA Diagnosis No Discharge Core Measures Meds if any: Prescribed or Continued at Discharge Meds if any: NOT Prescribed or Continued at Discharge Venous thromboembolism Inclusion Criteria VTE Diagnosis No VTE Type NONE VTE Confirmed by (Test) NONE Discharge Core Measures - Per Current guidelines, there needs to be overlap - treatment for the first 5 days of Warfarin therapy. - If discharged on Warfarin prior to 5 days of - overlap therapy, the patient will need to be - assessed for post discharge needs including - *Post discharge parental anticoagulation - *Warfarin and/or parental anticoagulation education - *Follow up date to check INR post discharge At least 5 days overlap therapy as Inpatient No Meds if any: Prescribed or Continued at Discharge Note: Overlap Therapy is Warfarin and Anticoagulant Meds if any: NOT Prescribed or Continued at Discharge
[2017-10-09 14:39] VITALS: BP 114/50
--- NOTE | 2017-10-09 14:41 | Discharge Summary ---
Visit Information Visit Dates Admission Date: 10/08/17 Discharge Date: 10/09/2017 Hospital Course Course Attending Physician: Simone APPLE,Aidee Primary Care Physician: Patient Has No Primary Care Dr Hospital Course: Patient is 76 year old female with PMH of HTN, diabetes, hyperlipidemia came with chief complaint of urinary incontinence and pelvic pain. Patient was initially seen on September 14 after she slipped on the piece of ice because she lost her balance. X-ray of the femur as well as shoulder at that time were negative and patient was sent home. Patient continued to walk but had excruciating pain in her right lower extremity and claims that her right lower extremity was also more swollen. She now also having difficulty with urination. She had urge to go but then they urine would not come out when she was sitting on the commode but as soon as she stood up she had incontinence. She denies any burning or pain. She denies any problem with her bowel movements. In the emergency room CT shows fracture of sacrum. --------- Vitals at the time of admission afebrile, heart rate 97, respiratory rate 18, blood pressure 133/65, saturating at 95 on room air labs CBC and BP normal CT scan 10/08 Fracture of the left proximal sacrum. No other fracture is seen. Multilevel broad-based diffuse disc bulge and secondary spinal stenosis due to disc bulge, short pedicles and facet arthritis most significant at L3-L4 and L4-L5. 1.Pelvic fracture with urinary incontinence and loss of rectal tone 2.Diabetes 3. Hypertension A/P; 76 y/o F with pmh sig for HTN, diabetes, hyperlipidemia, admitted with a fall which happened 3 weeks ago and now with continued pain patient presented to the emergency room. Imaging is consistent with sacral fracture. Patient also has some urinary incontinence. Concern for Cauda Equina. Neurosurgery, orthopedic was consulted. There is concern for cauda equina syndrome given saddle anesthesia, urinary incontinence, loss of rectal tone on rectal exam. Patient was given 1 dose of 10 mg dexamethasone. Patient needs further imaging with MRI to confirm cauda equina syndrome. As MRI is not available until Tuesday patient will be transferred to [facility] for emergent MRI and urgent surgical intervention as per Dr. Anderson neurosurgeon. Will be admitted under Dr. Anderson's service. Patient was provided adequate pain management with Tylenol, ibuprofen, low-dose narcotics. Left sacral fracture patient has had many orthopedic procedures in the past including bilateral hip replacements , lumbar discectomies x2. she had a mechanical fall which resulted in a left sided sacral fracture and exacerbation of her spinal stenosis at L4-5 and L 5 S1. she was admitted with pain and difficulty walking. She was seen by Dr. Lopez orthopedician, no acute recommendations were provided. Right lower extremity swelling Her right lower extremity Doppler ultrasound is negative for DVT. Hypertension continued hydrochlorothiazide, losartan, Lasix Hyperlipidemia continued statin Diabetes continue insulin sliding scale Patient be on Lovenox for DVT prophylaxis. Full code Allergies: Coded Allergies: No Known Allergies (09/14/17) Significant Procedures: EXAM TYPE: CAT - CT LUMB SPINE WO IV CONTRAST EXAMINATION: CT LUMBAR SPINE WITHOUT CONTRAST CLINICAL INFORMATION: Fall with low back pain. COMPARISON: None. TECHNIQUE: Helical non-contrast CT images were obtained through the lumbar spine and 1.25 and 2.5 mm axial reconstructions were reviewed along with sagittal and coronal MPRs. DLP: 651 mGy-cm. FINDINGS: Bone alignment is normal. No vertebral fracture or dislocation is seen. There is a fracture of the left proximal sacrum. This is best appreciated on coronal reconstructed image 46. SPINAL LEVELS: T12-L1: Normal. L1-L2: Normal. L2-L3: There is mild diffuse disc bulge. There is mild secondary spinal stenosis due to disc bulge, short pedicles and facet arthritis. L3-L4: There is broad-based diffuse disc bulge. There is severe spinal stenosis due to disc bulge, short pedicles, facet arthritis and ligamentum flavum thickening. L4-L5: There is broad-based diffuse disc bulge. There is severe secondary spinal stenosis due to disc bulge, short pedicles, facet arthritis and ligamentum flavum thickening. L5-S1: There is broad-based diffuse disc bulge. There is mild secondary spinal stenosis due to disc bulge, short pedicles and facet arthritis. The abdominal aorta is normal in caliber. Visualized paravertebral soft tissues are unremarkable. There may be evidence of diverticulosis. The bladder appears very distended. There are bilateral hip replacements. IMPRESSION: Fracture of the left proximal sacrum. No other fracture is seen. Multilevel broad-based diffuse disc bulge and secondary spinal stenosis due to disc bulge, short pedicles and facet arthritis most significant at L3-L4 and L4-L5. TECHNIQUE: Color-flow triplex imaging with spectral analysis and compression Doppler were performed on the lower extremity. FINDINGS: Respiratory variation, normal compression and augmented flow are noted throughout the lower extremity. The visualized common femoral vein, superficial femoral vein, profunda femoral vein, popliteal vein and midcalf peroneal and posterior tibial venous segments show no evidence of deep venous thrombosis. There is no Spaulding's cyst. IMPRESSION: Normal triplex scan without evidence of deep venous thrombosis involving the lower extremity. ------- Disposition Summary Disposition Principal Diagnosis: Left sacral fracture Highly suspicious for cauda equina syndrome Additional Diagnosis: Hypertension Hyperlipidemia Diabetes mellitus Discharge Disposition: other general hospital Discharge Instructions General Discharge Information Code Status: Full Code Patient's Diet: As tolerated Patient's Activity: she can be OOB 50% wb left side full on right Follow-Up Instructions/Appts: Follow-up with PCP in one week after discharge Follow-up with orthopedics in one week after discharge follow-up with the neurosurgeon in 1 week after discharge Medications at Discharge Discharge Medications: Continue taking these medications: Cyclobenzaprine HCl (Cyclobenzaprine HCl) 5 MG TABLET 1 Tablet ORAL EVERY 8 HOURS NEEDED as needed for PAIN Qty = 30 Tramadol HCl/Acetaminophen (Tramadol-Acetaminophn 37.5-325) 37.5 MG-325 MG TABLET 1-2 Tablet ORAL Q8H as needed for PAIN Qty = 42 Glipizide (Glipizide ER) 10 MG TAB.ER.24 2 Tablet ORAL TWICE DAILY Qty = 60 Fluticasone Propionate (Fluticasone Propionate) 50 MCG/ACTUATION SPRAY.SUSP 2 [place] Both sides of nose As Directed as needed for NASAL Qty = 16 Losartan/Hydrochlorothiazide (Losartan-Hctz 100-12.5 MG Tab) 100 MG-12.5 MG TABLET 1 Tablet ORAL DAILY Qty = 90 Sitagliptin Phos/Metformin HCl (Janumet 50-500 MG Tablet) 50 MG-500 MG TABLET 1 Tablet ORAL TWICE DAILY Qty = 180 Lorazepam (Lorazepam) 0.5 MG TABLET 1 Tablet ORAL Q8H as needed for ANXIETY Qty = 30 Atorvastatin Calcium (Atorvastatin Calcium) 20 MG TABLET 1 Tablet ORAL DAILY Qty = 90 Multiple Vitamin (Multivitamins) 1 EACH TABLET 1 Tablet ORAL DAILY Vit C/E/Zn/Coppr/Lutein/Zeaxan (Preservision Areds 2 Softgel) 250-200-40 CAPSULE 1 SGL ORAL TWICE DAILY Folic Acid (Folic Acid) 0.4 MG TABLET 1 Tablet ORAL DAILY Cholecalciferol (Vitamin D3) (Vitamin D) (Unknown Strength) CAPSULE Unknown Dose ORAL DAILY Copies To: Justin APPLE,Tylor
== END 2017-10-09 15:48 | disposition short-term general hospital (02) | DRG 552 ==
LOC: ERH 05:48 → ERHI 10:04 → ENRESERV 11:04 → ENTRNSPT 12:10 → 2NB 12:44 → EDTRNSPTSTS 13:06 → 2NB 13:27 → CMPTRNSPT 13:31 → 2NB 10-09 15:48
PROVIDERS: Internal Medicine; Pediatrics
DX: S32.10XA Unspecified fracture of sacrum, initial encounter for closed fracture (principal); E11.9 Type 2 diabetes mellitus without complications; G83.4 Cauda equina syndrome; I10 Essential (primary) hypertension; W00.0XXA Fall on same level due to ice and snow, initial encounter; M48.061 Spinal stenosis, lumbar region without neurogenic claudication; Y92.9 Unspecified place or not applicable; E78.5 Hyperlipidemia, unspecified; R32 Unspecified urinary incontinence; Z79.84 Long term (current) use of oral hypoglycemic drugs; Z86.718 Personal history of other venous thrombosis and embolism
CPT/HCPCS: 2NBP; 36415; 81001; 82436; 93005; 93010; 96372; 97161-GP; 97530-GP; G8978-GP; G8979-GP; J1100; J1650; J1885; J3490